=== PATIENT | female | born 1985 | race Caucasian/White ===

== ENCOUNTER 2021-09-15 20:25 | Emergency (ER) | payer OTHER ==
[~2021-09-15] VITALS: Ht 162.6 cm; Wt 77.3 kg
[2021-09-15 23:00] VITALS: BP 146/93
[2021-09-15] MEDS ORDERED: IV NORMAL SALINE 1000ML BAG 1,000 ML IV ONE (23:00)
[2021-09-15] MEDS ORDERED: KETOROLAC 30 MG/ML VIAL. IVP ONE (23:00)
[2021-09-15] MEDS ORDERED: MORPHINE SULFATE 4 MG/ML INJ. IVP ONE (23:00)
[2021-09-15] MEDS ORDERED: ONDANSETRON PF 4 MG/2 ML VIAL. IVP ONE (23:00)
[2021-09-15 23:11] LABS: BILIRUBIN,URINE NEGATIVE (NEG); CLARITY,URINE CLEAR; COLOR,URINE YELLOW; NITRITE,URINE NEGATIVE (NEG); PH,URINE 5.5 (<5.0-8.0); PROTEIN,URINE NEGATIVE (NEG-TRACE); UROBILINOGEN,URINE 0.2 mg/dL (0.2 mg/dL)
[2021-09-15 23:26] LABS: BASO % 0 % (0-3); EOS # 0.2 x10^3/uL (0.0-0.7); EOS % 1 % (0-3); HEMATOCRIT 44.3 % (36.0-47.0); HEMOGLOBIN 14.9 g/dL (12.0-15.5); LYMPH % 30 % (24-48); MEAN CORPUSCULAR HEMOGLOBIN 31 pg (25-35); MEAN CORPUSCULAR HGB CONC 34 g/dL (31-37); MEAN CORPUSCULAR VOLUME 91 fL (79-100); MONO # 0.6 x10^3/uL (0.0-1.1); MONO % 5 % (0-9); NEUT # 8.6 x10^3/uL (1.8-7.7); NEUT % 64 % (31-73); PLATELET COUNT 228 x10^3/uL (140-400); RED BLOOD COUNT 4.85 x10^6/uL (3.50-5.40); RED CELL DISTRIBUTION WIDTH 13.4 % (11.5-14.5); WHITE BLOOD COUNT 13.4 x10^3/uL (4.0-11.0)
[2021-09-15 23:28] LABS: BACTERIA,URINE 0 /HPF (0-FEW); RBC,URINE 0 /HPF (0-2); WBC,URINE RARE /HPF (0-4)
--- NOTE | 2021-09-15 23:33 | PHYS DOC ---
Past Medical History Past Medical History: Kidney Stone, Other (ovarian cyst) Past Surgical History: General Adult EDM: Chief Complaint: FLANK PAIN HPI: HPI: Patient is a 36 year old female who present to ER for evaluation of left flank pain that been going on for about 6 days. Patient described the pain as cramping in nature, she also feels bloated. Patient does have a history of kidney stones and ovarian cyst in the past. Patient denies any cough or fever, no nausea vomiting, no blood in her urine patient says she has the urge to urinate but no pain. Patient has history of irritable bowel syndrome. Review of Systems: Review of Systems: Constitutional: Denies fever or chills. [] Eyes: Denies change in visual acuity. [] HENT: Denies nasal congestion or sore throat. [] Respiratory: Denies cough or shortness of breath. [] Cardiovascular: Denies chest pain or edema. [] GI: Positive for left flank pain, no nausea, vomiting, bloody stools or diarrhea. [] : No dysuria Musculoskeletal: Denies back pain or joint pain. [] Integument: Denies rash. [] Neurologic: Denies headache, focal weakness or sensory changes. [] Endocrine: Denies polyuria or polydipsia. [] Lymphatic: Denies swollen glands. [] Psychiatric: Denies depression or anxiety. [] Heart Score: C/O Chest Pain: N/A Risk Factors: Risk Factors: DM, Current or recent (<one month) smoker, HTN, HLP, family history of CAD, obesity. Risk Scores: Score 0 - 3: 2.5% MACE over next 6 weeks - Discharge Home Score 4 - 6: 20.3% MACE over next 6 weeks - Admit for Clinical Observation Score 7 - 10: 72.7% MACE over next 6 weeks - Early Invasive Strategies Current Medications: Current Medications Medications (Trade) Dose Ordered Sig/Tasha Start Time Stop Time Status Last Admin Dose Admin Ketorolac Tromethamine (Toradol 30mg Vial) 30 mg 1X ONCE 09/15/21 23:00 09/15/21 23:01 UNV Morphine Sulfate (Morphine Sulfate) 4 mg 1X ONCE 09/15/21 23:00 09/15/21 23:01 UNV Ondansetron HCl (Zofran) 4 mg 1X ONCE 09/15/21 23:00 11/2/21 23:01 UNV Sodium Chloride 1,000 ml @ 1,000 mls/hr 1X ONCE 09/15/21 23:00 09/15/21 23:59 UNV Physical Exam: PE: Constitutional: Well developed, well nourished, no acute distress, non-toxic appearance. [] HENT: Normocephalic, atraumatic, bilateral external ears normal, oropharynx moist, no oral exudates, nose normal. [] Eyes: PERRLA, EOMI, conjunctiva normal, no discharge. [] Neck: Normal range of motion, no tenderness, supple, no stridor. [] Cardiovascular:Heart rate regular rhythm, no murmur [] Lungs & Thorax: Bilateral breath sounds clear to auscultation [] Abdomen: Bowel sounds normal, soft, left flank tenderness to palpation, abdomen distended, hyperactive bowel sounds,, no masses, no pulsatile masses. [] Skin: Warm, dry, no erythema, no rash. [] Back: No tenderness, positive for left CVA tenderness to palpation Extremities: No tenderness, no cyanosis, no clubbing, ROM intact, no edema. [] Neurologic: Alert and oriented X 3, normal motor function, normal sensory function, no focal deficits noted. [] Psychologic: Affect normal, judgement normal, mood normal. [] Current Patient Data: Labs: Laboratory Tests Test 09/15/21 23:00 09/15/21 23:05 09/15/21 23:21 Urine Collection Type Unknown Urine Color Yellow Urine Clarity Clear Urine pH 5.5 Urine Specific Yale 1.025 Urine Protein Negative mg/dL Urine Glucose (UA) Negative mg/dL Urine Ketones (Stick) Negative mg/dL Urine Blood Negative Urine Nitrite Negative Urine Bilirubin Negative Urine Urobilinogen Dipstick 0.2 mg/dL Urine Leukocyte Esterase Negative Urine RBC 0 /HPF Urine WBC Rare /HPF Urine Squamous Epithelial Cells Few /LPF Urine Bacteria 0 /HPF Urine Mucus Slight /LPF Bedside Urine HCG, Qualitative Hcg negative White Blood Count 13.4 x10^3/uL Red Blood Count 4.85 x10^6/uL Hemoglobin 14.9 g/dL Hematocrit 44.3 % Mean Corpuscular Volume 91 fL Mean Corpuscular Hemoglobin 31 pg Mean Corpuscular Hemoglobin Concent 34 g/dL Red Cell Distribution Width 13.4 % Platelet Count 228 x10^3/uL Neutrophils (%) (Auto) 64 % Lymphocytes (%) (Auto) 30 % Monocytes (%) (Auto) 5 % Eosinophils (%) (Auto) 1 % Basophils (%) (Auto) 0 % Neutrophils # (Auto) 8.6 x10^3/uL Lymphocytes # (Auto) 4.0 x10^3/uL Monocytes # (Auto) 0.6 x10^3/uL Eosinophils # (Auto) 0.2 x10^3/uL Basophils # (Auto) 0.0 x10^3/uL Sodium Level 141 mmol/L Potassium Level 3.5 mmol/L Chloride Level 102 mmol/L Carbon Dioxide Level 31 mmol/L Anion Gap 8 Blood Urea Nitrogen 12 mg/dL Creatinine 0.8 mg/dL Estimated GFR (Cockcroft-Gault) 80.7 BUN/Creatinine Ratio 15 Glucose Level 98 mg/dL Calcium Level 9.0 mg/dL Total Bilirubin 0.5 mg/dL Aspartate Amino Transf (AST/SGOT) 19 U/L Alanine Aminotransferase (ALT/SGPT) 81 U/L Alkaline Phosphatase 47 U/L Total Protein 7.8 g/dL Albumin 4.1 g/dL Albumin/Globulin Ratio 1.1 Lipase 79 U/L Current Medications Medications (Trade) Dose Ordered Sig/Tasha Route PRN Reason Start Time Stop Time Status Last Admin Dose Admin Ondansetron HCl (Zofran) 4 mg 1X ONCE IVP 09/15/21 23:00 09/15/21 23:26 DC 09/16/21 00:00 Morphine Sulfate (Morphine Sulfate) 4 mg 1X ONCE IVP 09/15/21 23:00 09/15/21 23:26 DC 09/16/21 00:00 Ketorolac Tromethamine (Toradol 30mg Vial) 30 mg 1X ONCE IVP 09/15/21 23:00 09/15/21 23:26 DC 09/16/21 00:00 Sodium Chloride 1,000 ml @ 1,000 mls/hr 1X ONCE IV 09/15/21 23:00 09/15/21 23:59 DC 09/16/21 00:00 Dicyclomine HCl (Bentyl) 10 mg 1X ONCE IM 09/16/21 00:45 09/16/21 00:46 Laboratory Tests Test 09/15/21 23:00 09/15/21 23:05 09/15/21 23:21 Urine Collection Type Unknown Urine Color Yellow Urine Clarity Clear Urine pH 5.5 Urine Specific Yale 1.025 Urine Protein Negative mg/dL Urine Glucose (UA) Negative mg/dL Urine Ketones (Stick) Negative mg/dL Urine Blood Negative Urine Nitrite Negative Urine Bilirubin Negative Urine Urobilinogen Dipstick 0.2 mg/dL Urine Leukocyte Esterase Negative Urine RBC 0 /HPF Urine WBC Rare /HPF Urine Squamous Epithelial Cells Few /LPF Urine Bacteria 0 /HPF Urine Mucus Slight /LPF Bedside Urine HCG, Qualitative Hcg negative White Blood Count 13.4 x10^3/uL Red Blood Count 4.85 x10^6/uL Hemoglobin 14.9 g/dL Hematocrit 44.3 % Mean Corpuscular Volume 91 fL Mean Corpuscular Hemoglobin 31 pg Mean Corpuscular Hemoglobin Concent 34 g/dL Red Cell Distribution Width 13.4 % Platelet Count 228 x10^3/uL Neutrophils (%) (Auto) 64 % Lymphocytes (%) (Auto) 30 % Monocytes (%) (Auto) 5 % Eosinophils (%) (Auto) 1 % Basophils (%) (Auto) 0 % Neutrophils # (Auto) 8.6 x10^3/uL Lymphocytes # (Auto) 4.0 x10^3/uL Monocytes # (Auto) 0.6 x10^3/uL Eosinophils # (Auto) 0.2 x10^3/uL Basophils # (Auto) 0.0 x10^3/uL Sodium Level 141 mmol/L Potassium Level 3.5 mmol/L Chloride Level 102 mmol/L Carbon Dioxide Level 31 mmol/L Anion Gap 8 Blood Urea Nitrogen 12 mg/dL Creatinine 0.8 mg/dL Estimated GFR (Cockcroft-Gault) 80.7 BUN/Creatinine Ratio 15 Glucose Level 98 mg/dL Calcium Level 9.0 mg/dL Total Bilirubin 0.5 mg/dL Aspartate Amino Transf (AST/SGOT) 19 U/L Alanine Aminotransferase (ALT/SGPT) 81 U/L Alkaline Phosphatase 47 U/L Total Protein 7.8 g/dL Albumin 4.1 g/dL Albumin/Globulin Ratio 1.1 Lipase 79 U/L Current Medications Medications (Trade) Dose Ordered Sig/Tasha Route PRN Reason Start Time Stop Time Status Last Admin Dose Admin Ondansetron HCl (Zofran) 4 mg 1X ONCE IVP 09/15/21 23:00 09/15/21 23:26 DC 09/16/21 00:00 Morphine Sulfate (Morphine Sulfate) 4 mg 1X ONCE IVP 09/15/21 23:00 09/15/21 23:26 DC 09/16/21 00:00 Ketorolac Tromethamine (Toradol 30mg Vial) 30 mg 1X ONCE IVP 09/15/21 23:00 09/15/21 23:26 DC 09/16/21 00:00 Sodium Chloride 1,000 ml @ 1,000 mls/hr 1X ONCE IV 09/15/21 23:00 09/15/21 23:59 DC 09/16/21 00:00 Laboratory Tests Test 09/15/21 23:05 POC Urine HCG, Qualitative Hcg negative (Negative) EKG: EKG: [] Radiology/Procedures: Radiology/Procedures: [][facility] [address] [place] [address] IMAGING REPORT Signed PATIENT: LOBO YATES ACCOUNT: [id number] : 1985 LOCATION: ER AGE: 36 SEX: F EXAM STATUS: REG ER ORD. PHYSICIAN: CECILE CHARLES DO REASON: left flank pain off and on for 6 days PROCEDURE: CT ABDOMEN PELVIS WO CONTRAST PQRS Compliance Statement: One or more of the following individualized dose reduction techniques were utili zed for this examination: 1. Automated exposure control 2. Adjustment of the mA and/or kV according to patient size 3. Use of iterative reconstruction technique CT abdomen/pelvis without contrast 09/15/2021 11:21 PM INDICATION: Left flank pain intermittent for 6 days COMPARISON: None available TECHNIQUE: Multiple axial CT images of the abdomen and pelvis were obtained wit hout intravenous contrast. Coronal and sagittal reformats are provided. FINDINGS: Visualized portions of the lung bases are clear. Heart size is within normal limits. Evaluation of the solid abdominal viscera is limited by lack of intravenous contrast. No suspicious hepatic masses are identified. Spleen, bilateral adrenal glands, and pancreas are normal in appearance. Gallbladder is present without adjacent inflammatory changes. The abdominal aorta is normal in course and caliber. There are no pathologically enlarged lymph nodes in the abdomen and pelvis. There is no abdominal free fluid. There is no free intraperitoneal air. Small and large bowel are normal in caliber. There is no evidence for bowel obstruction. There are no pericolonic inflammatory changes. A normal, nondilated appendix is visualized without adjacent inflammatory changes. The kidneys are relatively symmetric in appearance. There is no suspicious renal mass within the limitations of a noncontrast examination. There is no hydronephrosis. There are no calculi within the kidneys, ureters or urinary bladder. Urinary bladder is within normal limits given degree of distention. Uterus and adnexa are normal by CT. No significant pelvic free fluid. No suspicious osseous abnormality is identified. IMPRESSION: No findings to suggest obstructive uropathy. Electronically signed by: Carolyne Morales MD (09/15/2021 11:58 PM) [facility] DICTATED and SIGNED BY: CAROLYNE MORALES MD DATE: 09/15/21 [id number] 0 Course & Med Decision Making: Course & Med Decision Making Pertinent Labs and Imaging studies reviewed. (See chart for details) Patient is a 36-year-old female who present to ER for abdominal pain, cramping in nature, abdominal distention off and on for 1 week. Her lab work and CT scan of her abdomen pelvis did not show any acute problem. Will be discharged home with Bentyl to be taken as needed for abdominal cramping she will need to follow-up with her family physician for outpatient evaluation and treatment if she continues to have problem. Miriamon Disclaimer: Dragmichel Disclaimer: This electronic medical record was generated, in whole or in part, using a voice recognition dictation system. Departure Departure Impression: Primary Impression: Left flank pain Disposition: HOME / SELF CARE / HOMELESS Condition: IMPROVED Referrals: NO PCP (PCP) Please follow up with [facility] this week. [address], [address] [place] [address] Phone number: [phone] Patient Instructions: Flank Pain Additional Instructions: Thank you for visiting our Emergency Department. We appreciate you trusting us with your care. If any additional problems come up don't hesitate to return to visit us. Please follow up with your primary care provider so they can plan additional care if needed and know about the problem that you had. If symptoms worsen come back to the Emergency Department. Any concerning symptoms that start such as chest pain, shortness of air, weakness or numbness on one side of the body, running high fevers or any other concerning symptoms return to the ER. Scripts Dicyclomine Hcl (DICYCLOMINE HCL) 10 Mg Capsule 20 CAP PO QID PRN for ABDOMINAL CRAMPS, #60 CAP 11 Refills Prov: CECILE CHARLES DO 09/16/21 CECILE CHARLES DO Sep 15, 2021 23:33
[2021-09-15 23:36] LABS: CREATININE 0.8 mg/dL (0.6-1.0); GFR 80.7; POTASSIUM 3.5 mmol/L (3.5-5.1)
[2021-09-15 23:42] LABS: ALBUMIN 4.1 g/dL (3.4-5.0); ALBUMIN/GLOBULIN RATIO 1.1 (1.0-1.7); TOTAL BILIRUBIN 0.5 mg/dL (0.2-1.0); TOTAL PROTEIN 7.8 g/dL (6.4-8.2)
--- NOTE | 2021-09-16 00:01 | RAD ---
PQRS Compliance Statement: One or more of the following individualized dose reduction techniques were utilized for this examinat ion: 1. Automated exposure control 2. Adjustment of the mA and/or kV according to patient size 3. Use of iterative reconstruction technique CT abdomen/pelvis without contrast 09/15/2021 11:21 PM INDICATION: Left flank pain intermittent for 6 days COMPARISON: None available TECHNIQUE: Multiple axial CT images of the abdomen and pelvis were obtained without intravenous contr ast. Coronal and sagittal reformats are provided. FINDINGS: Visualized portions of the lung bases are clear. Heart size is within normal limits. Evaluation of the solid abdominal viscera is limited by lack of intravenous contrast. No suspicious hepatic masses are identified. Spleen, bilateral adrenal glands, and pancreas are noah l in appearance. Gallbladder is present without adjacent inflammatory changes. The abdominal aorta is normal in course and caliber. There are no pathologically enlarged lymph nodes in the abdomen and pelvis. There is no abdominal free fluid. There is no free intraperitoneal air. Small and large bowel are normal in caliber. There is no evidence for bowel obstruction. There are no pericolonic inflammatory changes. A normal, nondilated appendix is visualized without adjacent infla mmatory changes. The kidneys are relatively symmetric in appearance. There is no suspicious renal mass within the limi tations of a noncontrast examination. There is no hydronephrosis. There are no calculi within the kid neys, ureters or urinary bladder. Urinary bladder is within normal limits given degree of distention. Uterus and adnexa are normal by C T. No significant pelvic free fluid. No suspicious osseous abnormality is identified. IMPRESSION: No findings to suggest obstructive uropathy. Electronically signed by: Brenda Garcia MD (09/15/2021 11:58 PM) [facility]
[2021-09-16] MEDS ORDERED: DICY10CA3 PO (00:41)
[2021-09-16] MEDS ORDERED: DICYCLOMINE 20 MG/2 ML VIAL. IM ONE (00:45)
== END 2021-09-16 01:11 | disposition home or self-care (01) ==
LOC: ER 20:25
DX: R10.9 Unspecified abdominal pain (principal); Z87.442 Personal history of urinary calculi
CPT/HCPCS: 36415; 74176; 80053; 81001; 81025; 83690; 85025; 96361; 96372; 96374; 96375; 99284; J0500; J1885; J2270; J2405; J7030

== ENCOUNTER → 2021-11-12 | Outpatient (CLI) | payer OTHER ==
[~2021-11-12] MED LIST: DICY10CA3 PO
--- NOTE | 2021-11-12 15:35 | RAD ---
EXAM: Pelvic sonogram. HISTORY: Cramping. Menorrhagia. TECHNIQUE: Transabdominal sonographic imaging of the pelvis was performed. COMPARISON: None. FINDINGS: The uterus measures 10.5 x 4.9 x 4.3 cm. The endometrial stripe measures 9.7 mm in thicknes s. The ovaries are normal in size and demonstrate normal blood flow. There is a 1.2 cm dominant left ovarian follicle. There is a suspected fibroid within the superior left uterine fundus measuring 1.5 cm. There is a 7 mm suspected calcification within the uterine fundus. There is no pelvic free fluid. IMPRESSION: 1. 1.5 cm suspected uterine fibroid and 7 mm suspected uterine calcification. 2. 1.2 cm physiologic dominant left ovarian follicle. 3. Otherwise, unremarkable pelvic sonogram. The endometrial stripe is within normal limits in thickne ss for the premenopausal status of the patient. Electronically signed by: Corine Torres MD (11/12/2021 3:32 PM) [id number]
== END ==
LOC: US 14:53
PROVIDERS: ATTEND Family Medicine
DX: N83.02 Follicular cyst of left ovary (principal); N92.1 Excessive and frequent menstruation with irregular cycle
CPT/HCPCS: 76856